=== PATIENT | male | born 1970 | race Caucasian/White ===

== ENCOUNTER 2018-09-15 11:35 | Outpatient (CLI) | payer OTHER | END 2018-09-15 11:36 | disposition home or self-care (01) | LOC: DTY/OP 11:35 | PROVIDERS: ATTEND Specialist | DX: Z01.818 Encounter for other preprocedural examination (principal); E66.01 Morbid (severe) obesity due to excess calories | CPT/HCPCS: 97802 ==

== ENCOUNTER 2018-10-15 00:06 | Outpatient (CLI) | payer OTHER, SELFPAY ==
--- NOTE | 2018-10-15 16:23 | EKG ---
Test Reason : Blood Pressure : / mmHG Vent. Rate : 083 BPM Atrial Rate : 083 BPM P-R Int : 142 ms QRS Dur : 080 ms QT Int : 344 ms P-R-T Axes : 054 032 015 degrees QTc Int : 404 ms Normal sinus rhythm Normal ECG No previous ECGs available Confirmed by DR. Silvino LIEBERMAN ([id number]) on 10/15/2018 4:23:18 PM Referred By: DACIA Confirmed By:DR. Silvino LIEBERMAN
== END 2018-10-15 00:07 | disposition home or self-care (01) ==
LOC: LABBT 00:06
PROVIDERS: ATTEND Specialist
DX: Z01.818 Encounter for other preprocedural examination (principal)
CPT/HCPCS: 93005; 93010

== ENCOUNTER 2018-10-15 11:00 | Inpatient (IN) | payer OTHER ==
[2018-10-15 11:42] VITALS: BMI 46.5
[2018-10-19] MEDS ORDERED: Heparin 5,000 UNITS/ML VIAL ONE (06:10)
[2018-10-19] MEDS ORDERED: Ketorolac Tromethamine 30 MG/ML VIAL ONE (06:10)
[2018-10-19] MEDS ORDERED: Scopolamine 1.5 mg/72 hour Patch ONE (06:10)
[2018-10-19] MEDS ORDERED: Bupivacaine/Epinephrine 0.25% 30 ML VIAL ONE (06:28)
[2018-10-19] MEDS ORDERED: cefOXitin Sodium/Dextrose,Iso 2 GM in Premix Bag 1 BAG IVPB SCH (06:30)
[2018-10-19] MEDS ORDERED: Midazolam HCl 2 mg/2 ml Vial ONE (07:12)
[2018-10-19] MEDS ORDERED: Fentanyl 250 MCG/5 ML VIAL ONE (07:12)
[2018-10-19] MEDS ORDERED: Lidocaine 1% PF 5 ML VIAL ONE (09:14)
[2018-10-19] MEDS ORDERED: Dexamethasone 20 MG/5 ML VIAL ONE (09:14)
[2018-10-19] MEDS ORDERED: ePHEDrine 50 MG/ML VIAL ONE (09:14)
[2018-10-19] MEDS ORDERED: Rocuronium Bromide 10 MG/ML (10ML VIAL) ONE (09:14)
[2018-10-19] MEDS ORDERED: Glycopyrrolate 0.2 MG/ML 5 ML SYRINGE ONE ×2 (09:14)
[2018-10-19] MEDS ORDERED: PROPOFOL 200 MG/20 ML VIAL ONE (09:14)
[2018-10-19] MEDS ORDERED: Fentanyl 100 MCG/2 ML VIAL ONE ×2 (10:02→10:38)
[2018-10-19] MEDS ORDERED: Ondansetron PF 4 MG/2 ML Vial ONE (10:02)
[2018-10-19] MEDS ORDERED: Dextrose 5% in Water 1,000 ML IV PRN (10:15)
[2018-10-19] MEDS ORDERED: Promethazine HCl 25 MG/ML VIAL IM PRN (10:15)
[2018-10-19] MEDS ORDERED: diphenhydrAMINE 50 MG/ML VIAL IVP PRN (10:15)
[2018-10-19] MEDS ORDERED: Dextrose 50% Abboject 50 ML SYRINGE SLOW IVP PRN (10:15)
[2018-10-19] MEDS ORDERED: Morphine 4 MG/ML VIAL SLOW IVP PRN (10:15)
[2018-10-19] MEDS ORDERED: hydrALAZINE 20 MG/ML VIAL SLOW IVP PRN (10:15)
[2018-10-19] MEDS ORDERED: Ondansetron PF 4 MG/2 ML Vial IVP PRN (10:15)
[2018-10-19] MEDS ORDERED: Morphine 2 MG/ML SYRINGE SLOW IVP PRN (10:15)
[2018-10-19] MEDS: D5 1/2 NS w/20 mEq KCL 1,000 ML IV SCH ×3 (11:40→18:19)
[2018-10-19] MEDS ORDERED: Morphine 4 MG/ML VIAL ONE (11:53)
[2018-10-19] MEDS ORDERED: Ketorolac Tromethamine 30 MG/ML VIAL IVP SCH (12:00)
[2018-10-19] MEDS ORDERED: Morphine 2 MG/ML SYRINGE ONE (12:35)
[2018-10-19] MEDS ORDERED: Sodium Chloride 0.9% (PF) 10 ML VIAL FS PRN (12:50)
[2018-10-19] MEDS ORDERED: Pantoprazole 40 MG VIAL IVP SCH (13:00)
[2018-10-19] MEDS: Acetaminophen 1,000 MG in Premix Bag 1 BAG IVPB SCH ×4 (15:15→21:55)
[2018-10-19] MEDS: Ketorolac Tromethamine 30 MG/ML VIAL IVP SCH ×2 (15:20→21:55)
[2018-10-19] MEDS ORDERED: Enoxaparin Sodium 40 MG/0.4 ML SYRINGE SC SCH (21:00)
--- NOTE | 2018-10-20 00:54 | OP ---
DATE OF PROCEDURE: 10/19/2018 PREOPERATIVE DIAGNOSIS: Morbid obesity. POSTOPERATIVE DIAGNOSIS: Morbid obesity. OPERATION PERFORMED: Laparoscopic vertical sleeve gastrectomy using the ViSiGi device. ANESTHESIA: General endotracheal. INDICATIONS FOR PROCEDURE: The patient is a 48-year-old white male who is morbidly obese. He has undergone preoperative evaluation and education and presents at this time for laparoscopic sleeve gastrectomy. DESCRIPTION OF OPERATION: Informed consent was obtained. The patient was taken to the operating room where general endotracheal anesthesia was obtained with the patient in supine position. Abdomen was prepped with ChloraPrep and draped in sterile fashion. Local anesthetic was infiltrated and 5 mm supraumbilical incision was created through which Veress needle was passed to the peritoneal cavity and pneumoperitoneum established using carbon dioxide up to a pressure of 15 mmHg. A 5 mm trocar port was passed through this same incision. Laparoscopic camera was passed through this port. Under direct vision, 4 additional ports were placed including bilateral 5 mm subcostal ports, a 12 mm right paramedian port and a 15 mm left paramedian port. A 5 mm epigastric incision was created through which Nathansen retractor was passed into the abdominal cavity and used to retract the left lobe of the liver. The patient was placed into reverse Trendelenburg position. The ViSiGi device was advanced within the stomach and used to decompress this. The pylorus was identified and beginning 4 cm proximal to the pylorus, the omentum and vascular tissue along the greater curvature was divided using the LigaSure in an ascending fashion up to the angle of His. All posterior adhesions were mobilized. The short gastric vessels were carefully divided and then hemostasis was maintained using the LigaSure. Once this was completely mobilized, the ViSiGi was carefully positioned at the level of the pylorus and placed to suction, which was clearly defining the lesser curvature of the stomach. The gastrectomy was then performed using a series of fires of the Garretson stapler using a green load followed by a gold load and a series of blue loads until completion of the gastrectomy. The ViSiGi along the lesser curvature was used as a size 36 bougie to guide in the gastric division. Care was taken to avoid narrowing the incisura or the gastroesophageal junction. The integrity of the staple line was then assessed by insufflating gas through the ViSiGi while irrigating along the staple line. There was no evidence of an air leak. There was no evidence of bleeding along the staple line. The resected stomach was then removed through the 15 mm port and the fascia was closed with 0 Vicryl suture using a GraNee needle. I then closed the 12 mm port also using the GraNee needle and 0 Vicryl suture. The Nathansen retractor was removed. All ports and instruments were removed under direct vision. All irrigant was aspirated. Pneumoperitoneum was carefully evacuated. 0.25% Marcaine with epinephrine was infiltrated into each port site. Skin edges approximated with 4-0 Monocryl subcuticular suture. Dermabond was placed externally. There were no complications. The patient tolerated the procedure well and was taken to recovery room in stable condition. FINDINGS: The patient had no evidence of fatty liver. His surgery was performed uneventfully with no complications and no significant blood loss. At the conclusion of the procedure, I also excised a 1-cm scalp cyst using local anesthesia and closed that defect in layers with 3-0 Vicryl and 2-0 Prolene. The patient was taken to recovery room in stable condition. Job ID: [id number]
[2018-10-20] MEDS: Ketorolac Tromethamine 30 MG/ML VIAL IVP SCH ×2 (03:31→09:38)
[2018-10-20] MEDS: Acetaminophen 1,000 MG in Premix Bag 1 BAG IVPB SCH ×2 (03:34→09:38)
[2018-10-20 07:00] LABS: #Lymphocytes 1.7 thou/uL (1.20-3.40); #Monocytes 1.1 thou/uL (0.11-0.59); #Neutrophils 7.4 thou/uL (1.40-6.50); %Basophils 0.1 % (0.0-1.0); %Eosinophils 0.2 % (0.0-10.0); %Lymphocytes 17.1 % (21.0-51.0); %Monocytes 10.6 % (0.0-10.0); Mean Corpuscular HGB CONC 33.2 g/dL (32.0-36.0); Mean Corpuscular Hemoglobin 29.4 pg (27.0-31.0); Mean Corpuscular Volume 88.6 fL (78.0-98.0); Mean Platelet Volume 8.1 fL (7.4-10.4); Platelet Count 172 thou/uL (130-400); RBC Distribution Width 11.6 % (11.5-14.5); Red Blood Cell (RBC) Count 4.42 mill/uL (4.70-6.10); White Blood Cell (WBC) Count 10.2 thou/uL (4.8-10.8)
[2018-10-20 07:26] LABS: Anion Gap 10 mmol/L (10-20); BUN (Urea Nitrogen) 7 mg/dL (8.9-20.6); Calc. Creatinine Clearance 224 mL/min (70-130); Calcium 8.4 mg/dL (7.8-10.44); Carbon Dioxide 27 mmol/L (22-29); Chloride 106 mmol/L (98-107); Estimated GFR-MDRD Greater than 90; Glucose 129 mg/dL (70-105); Potassium 3.8 mmol/L (3.5-5.1); Sodium 139 mmol/L (136-145)
[2018-10-20 08:18] VITALS: BP 123/69; TEMP 97.9
[2018-10-20] MEDS ORDERED: Hydrocodone-Acetamin 15 ML UDCUP PO PRN (09:00)
[2018-10-20] MEDS ORDERED: Pantoprazole 40 MG VIAL IVP SCH (09:00)
[2018-10-20] MEDS: D5 1/2 NS w/20 mEq KCL 1,000 ML IV SCH (09:42)
== END 2018-10-20 10:15 | disposition home or self-care (01) | DRG 621 ==
LOC: SURG A 10-19 05:57 → SURG B 10-19 13:23
PROVIDERS: ADMIT Specialist; ATTEND Specialist
PROC: 0DB64Z3 Excision of Stomach, Percutaneous Endoscopic Approach, Vertical (ICD-10-PCS; principal; 2018-10-19)
DX: E66.01 Morbid (severe) obesity due to excess calories (principal); I10 Essential (primary) hypertension; Z68.42 Body mass index [BMI] 45.0-49.9, adult
CPT/HCPCS: 36415; 80048; 85025; 88307; 88312; 90471; 90686; C9113; G0008; J0131; J1100; J1644; J1650; J1885; J2001; J2250; J2270; J2405; J2704; J3010; J3490

== ENCOUNTER 2023-03-22 07:44 | Inpatient (IN) | payer BC ==
[2023-03-22 08:11] LABS: #Basophils 0.1 thou/uL (0.0-0.2); #Eosinphils 0.3 thou/uL (0.0-0.7); #Monocytes 0.7 thou/uL (0.11-0.59); #Neutrophils 3.3 thou/uL (1.40-6.50); %Basophils 1.5 % (0.0-1.0); %Eosinophils 4.4 % (0.0-10.0); %Lymphocytes 39.2 % (21.0-51.0); %Monocytes 9.2 % (0.0-10.0); Hematocrit 47.3 % (42.0-52.0); Hemoglobin 16.3 g/dL (14.0-18.0); Mean Corpuscular HGB CONC 34.5 g/dL (32.0-36.0); Mean Corpuscular Hemoglobin 30.4 pg (27.0-31.0); Mean Corpuscular Volume 88.2 fl (78.0-98.0); Mean Platelet Volume 9.6 fL (7.4-10.4); Platelet Count 203 10x3/uL (130-400); RBC Distribution Width 11.9 % (11.5-14.5); Red Blood Cell (RBC) Count 5.36 mill/uL (4.70-6.10); White Blood Cell (WBC) Count 7.3 10x3/uL (4.8-10.8)
[2023-03-22] MEDS ORDERED: dilTIAZem 25 MG/5 ML VIAL ONE (08:12)
[2023-03-22 08:27] LABS: ALT (SGPT) 31 U/L (8-55); AST (SGOT) 22 U/L (5-34); Albumin 4.3 g/dL (3.5-5.0); Alkaline Phosphatase 94 U/L (40-110); Anion Gap 19 mmol/L (10-20); BUN (Urea Nitrogen) 11 mg/dL (8.4-25.7); Bilirubin, Total 0.5 mg/dL (0.2-1.2); Calc. Creatinine Clearance 0 mL/min (70-130); Calcium 8.5 mg/dL (7.8-10.44); Carbon Dioxide 24 mmol/L (22-29); Chloride 102 mmol/L (98-107); Estimated GFR 103; Globulin 2.9 g/dL (2.4-3.5); Glucose 121 mg/dL (70-105); Lipase 17 U/L (8-78); Potassium 3.7 mmol/L (3.5-5.1); Protein, Total 7.2 g/dL (6.0-8.3); Sodium 141 mmol/L (136-145)
[2023-03-22 08:31] LABS: Troponin I Less than 0.010 ng/mL (< 0.028)
[2023-03-22 08:46] LABS: CK (CPK) 95 U/L (30-200); Magnesium 1.9 mg/dL (1.6-2.6)
[2023-03-22] MEDS ORDERED: dilTIAZem 125 MG/25 ML SDV ONE (09:19)
[2023-03-22] MEDS ORDERED: Senokot S 8.6-50 MG TAB PO PRN ×2 (10:11→11:36)
[2023-03-22] MEDS ORDERED: Ondansetron PF 4 MG/2 ML Vial IVP PRN ×2 (10:11→11:36)
[2023-03-22] MEDS ORDERED: HYDROcodone/Acetaminophen 5/325 mg Tablet PO PRN ×2 (10:11→11:36)
[2023-03-22] MEDS ORDERED: Acetaminophen 325 MG TAB PO PRN ×2 (10:11→11:36)
[2023-03-22] MEDS ORDERED: dilTIAZem 125 MG in Sodium Chloride 0.9% 100 ML IVPB SCH ×2 (10:15→11:15)
[2023-03-22] MEDS ORDERED: Potassium Chloride 20 MEQ TAB PO SCH ×2 (10:45→11:15)
[2023-03-22 11:08] LABS: PTT 25.5 sec (22.9-36.1); Prothrombin Time 13.4 sec (12.0-14.7)
[2023-03-22 11:10] LABS: Troponin I Less than 0.010 ng/mL (< 0.028)
[2023-03-22 11:54] VITALS: BMI 40.8
[2023-03-22] MEDS ORDERED: Metoprolol Tartrate 25 MG TAB PO SCH ×3 (12:30→21:00)
[2023-03-22] MEDS ORDERED: Flecainide Acetate 100 MG TAB PO SCH (14:45)
[2023-03-22] MEDS: Metoprolol Tartrate 25 MG TAB PO SCH (20:23)
[2023-03-22] MEDS: Famotidine 20 MG TAB PO SCH (20:24)
[2023-03-22] MEDS ORDERED: Enoxaparin 120 MG/0.8 ML SYRINGE SC SCH ×2 (21:00)
[2023-03-22] MEDS ORDERED: Famotidine 20 MG TAB PO SCH (21:00)
[2023-03-23 07:17] VITALS: TEMP 97.8
[2023-03-23] MEDS ORDERED: Aspirin Chewable 81 MG TAB PO SCH ×2 (09:00)
[2023-03-23] MEDS: Famotidine 20 MG TAB PO SCH (09:12)
[2023-03-23] MEDS: Metoprolol Tartrate 25 MG TAB PO SCH (09:12)
== END 2023-03-23 11:01 | disposition home or self-care (01) | DRG 309 ==
LOC: ERS 07:44 → IMCU/EMU 10:11 → ERS 11:10
PROVIDERS: ADMIT Family Medicine; ATTEND Internal Medicine
DX: I48.0 Paroxysmal atrial fibrillation (principal); Z68.41 Body mass index [BMI] 40.0-44.9, adult; F10.90 Alcohol use, unspecified, uncomplicated; F17.210 Nicotine dependence, cigarettes, uncomplicated; G47.33 Obstructive sleep apnea (adult) (pediatric); E66.01 Morbid (severe) obesity due to excess calories; Z98.84 Bariatric surgery status; Z82.49 Family history of ischemic heart disease and other diseases of the circulatory system
CPT/HCPCS: 36415; 71045; 80053; 82550; 83690; 83735; 83880; 84443; 84484; 85025; 85379; 85610; 85730; 93005; 93010; 93306; 94760; J1650; J3490

== ENCOUNTER 2023-05-11 17:00 | Outpatient (CLI) | payer BC | END 2023-05-11 17:01 | disposition home or self-care (01) | LOC: SLEEPLAB 17:00 | PROVIDERS: ATTEND Nurse Practitioner Family | DX: G47.33 Obstructive sleep apnea (adult) (pediatric) (principal); R06.83 Snoring; I10 Essential (primary) hypertension; G47.00 Insomnia, unspecified | CPT/HCPCS: 95800 ==

== ENCOUNTER 2023-07-06 17:00 | Outpatient (CLI) | payer BC | END 2023-07-06 17:01 | disposition home or self-care (01) | LOC: SLEEPLAB 17:00 | PROVIDERS: ATTEND Nurse Practitioner Family | DX: G47.33 Obstructive sleep apnea (adult) (pediatric) (principal) | CPT/HCPCS: 95811 ==